=== PATIENT | female | born 1990 | race Native Hawaiian/Other Pacific Islander ===

== ENCOUNTER 2016-10-30 15:26 | Emergency (ER) | payer OTHER ==
[2016-10-30 15:27] VITALS: BMI 26.4
[2016-10-30] MEDS ORDERED: Sodium Chloride 0.9% 1,000 ML IV ONE (15:49)
--- NOTE | 2016-10-30 15:50 | C.PDOC ---
History Of Present Illness <Franca Alexander - Last Filed: 10/30/16 19:31> <Deniz Bhatt - Last Filed: 10/30/16 22:08> 26 year old patient presents to the emergency department complaining of dull epigastric abdominal pain that began this morning. She reports the pain now is sharp. She also complains of 2 episodes of vomiting of food substance, non- bloody, non-bilious. Patient denies fever, chills, diarrhea, or back pain. no urinary symptoms, no cp, no sob. no sick contacts. (Franca Alexander) History Per: Patient History/Exam Limitations: no limitations Onset/Duration Of Symptoms: Hrs (this morning) Current Symptoms Are (Timing): Still Present Context: Other Severity: Mild Pain Scale Rating Of: 3 Location Of Pain/Discomfort: Epigastric Radiation Of Pain To:: None Quality Of Discomfort: Sharp, "Pain" Associated Symptoms: Nausea, Vomiting Exacerbating Factors: None Alleviating Factors: None Last Bowel Movement: Today Recent travel outside of the [place]: No <Franca Alexander - Last Filed: 10/30/16 19:31> <Deniz Bhatt - Last Filed: 10/30/16 22:08> Time Seen by Provider: 10/30/16 15:42 Chief Complaint (Nursing): Abdominal Pain Past Medical History Reviewed: Historical Data, Nursing Documentation, Vital Signs - Medical History PMH: Asthma Surgical History: No Surg Hx Family History: States: Unknown Family Hx - Social History Hx Tobacco Use: No Hx Alcohol Use: No Hx Substance Use: No - Immunization History Hx Tetanus Toxoid Vaccination: No Hx Influenza Vaccination: Yes Hx Pneumococcal Vaccination: No <Franca Alexander - Last Filed: 10/30/16 19:31> Review Of Systems Except As Marked, All Systems Reviewed And Found Negative. Constitutional: Negative for: Fever, Chills Gastrointestinal: Positive for: Nausea, Vomiting, Abdominal Pain. Negative for : Diarrhea Genitourinary: Negative for: Dysuria, Vaginal Discharge, Vaginal Bleeding Musculoskeletal: Negative for: Back Pain <Franca Alexander - Last Filed: 10/30/16 19:31> Physical Exam - Physical Exam Appears: Non-toxic, No Acute Distress Skin: Warm, Dry Head: Atraumatic, Normacephalic Oral Mucosa: Moist Throat: Normal, No Erythema Neck: Normal ROM, Supple Chest: Symmetrical, No Tenderness Cardiovascular: Rhythm Regular, No Murmur Respiratory: Normal Breath Sounds, No Rales, No Rhonchi, No Wheezing Gastrointestinal/Abdominal: Bowel Sounds, Soft, No Tenderness, No Distention, No Guarding, No Rebound Back: Normal Inspection, No CVA Tenderness Extremity: Normal ROM, No Pedal Edema, No Swelling Neurological/Psych: Oriented x3, Normal Speech, Normal Cognition Gait: Steady <Franca Alexander - Last Filed: 10/30/16 19:31> ED Course And Treatment - Laboratory Results Result Diagrams: 10/30/16 16:16 10/30/16 16:16 O2 Sat by Pulse Oximetry: 99 (room air) Pulse Ox Interpretation: Normal Progress Note: Plan: Labs, IV fluids, Zofran <Franca Alexander - Last Filed: 10/30/16 19:31> - Laboratory Results Result Diagrams: 10/30/16 16:16 10/30/16 16:16 <Deniz Bhatt - Last Filed: 10/30/16 22:08> Medical Decision Making <Franca Alexander - Last Filed: 10/30/16 19:31> <Deniz Bhatt - Last Filed: 10/30/16 22:08> Medical Decision Making: pt still c/o abdominal pain that she can;'t describe after pepcid and zofran. no cholecystitis on abdominal us. abdomen re-examined; normoactive bs, soft, nd , minimal epigastric tenderness, no rebound or guarding. will give toradol. 715 pm pt still having significant pain after toradol will do ct scan abdomen to evalfor ab pathology (Franca Alexander) Disposition - Disposition Disposition Time: 19:35 <Franca Alexander - Last Filed: 10/30/16 19:31> Counseled Patient/Family Regarding: Diagnosis - POA Present On Arrival: None <Deniz Bhatt Last Filed: 10/30/16 22:08> - Disposition Referrals: [facility] [Outside] Robert Beasley MD [Staff Provider] - Disposition: HOME/ ROUTINE Condition: STABLE Prescriptions: Dicyclomine [Dicyclomine HCl] 10 mg PO QID #14 cap Instructions: Abdominal Pain (ED) - Clinical Impression Clinical Impression: Abdominal pain - 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 - Scribe Statement The provider has reviewed the documentation as recorded by the Scribe <Franca Alexander - Last Filed: 10/30/16 19:31> <Deniz Bhatt - Last Filed: 10/30/16 22:08> - Scribe Statement Padmini Montemayor All medical record entries made by the Scribe were at my direction and personally dictated by me. I have reviewed the chart and agree that the record accurately reflects my personal performance of the history, physical exam, medical decision making, and the department course for this patient. I have also personally directed, reviewed, and agree with the discharge instructions and disposition. (Franca Alexander) Physician Patient Turnover Patient Signed Over To: Deniz Bhatt Handoff Comments: f/u ct scan and re-eval for dispo <Franca Alexander - Last Filed: 10/30/16 19:31>
[2016-10-30] MEDS ORDERED: Sodium Chloride 0.9% 1,000 ML ONE (16:03)
[2016-10-30 16:22] LABS: BASO % 0.2 % (0.0-2.0); EOS # 0.1 K/uL (0.0-0.7); EOS % 0.5 % (0.0-4.0); HEMATOCRIT 38.3 % (34.0-47.0); LYMPH # 1.2 K/uL (1.0-4.3); LYMPH % 8.2 % (20.0-40.0); MEAN CELL VOLUME 86.9 fL (81.0-99.0); MEAN CORPUSCULAR HEMOGLOBIN 28.6 pg (27.0-31.0); MEAN CORPUSCULAR HGB CONC 32.9 g/dL (33.0-37.0); MEAN PLATELET VOLUME 7.9 fL (7.2-11.7); MONO # 0.5 K/uL (0.0-0.8); MONO % 3.4 % (0.0-10.0); PLATELET COUNT 352 K/uL (130-400); RED CELL DISTRIBUTION WIDTH 13.3 % (11.5-14.5); WHITE BLOOD COUNT 14.8 K/uL (4.8-10.8)
[2016-10-30 16:26] LABS: CHLORIDE 97 mmol/L (98-107)
[2016-10-30 16:27] LABS: POTASSIUM 4.2 mmol/L (3.6-5.2); SODIUM 138 mmol/L (132-148)
[2016-10-30 16:29] LABS: ALB/GLOB RATIO 1.4 (1.0-2.1); ALKALINE PHOSPHATASE 87 U/L (38-126); AST/SGOT 20 U/L (14-36); BILIRUBIN,TOTAL 0.7 mg/dL (0.2-1.3); BLOOD UREA NITROGEN 11 mg/dL (7-17); CARBON DIOXIDE 30 mmol/L (22-30); GFR AFRICAN-AMERICAN > 60; TOTAL PROTEIN 8.5 g/dL (6.3-8.3)
[2016-10-30 16:30] LABS: ALT/SGPT 21 U/L (9-52); CALCIUM 9.5 mg/dl (8.6-10.4); GLUCOSE,RANDOM 98 mg/dL (65-105)
[2016-10-30 16:48] LABS: NEUTROPHIL 91 % (50-75); TOTAL CELLS COUNTED 100
[2016-10-30 17:21] LABS: RBC URINE 3 /hpf (0-3); URINE BILIRUBIN NEGATIVE (NEGATIVE); URINE BLOOD NEGATIVE (NEGATIVE); URINE COLOR Yellow (YELLOW); URINE GLUCOSE (UA) NORMAL (Normal); URINE KETONE 1+ mg/dL (NEGATIVE); URINE LEUKOCYTE ESTERASE NEG Leu/uL (Negative); URINE PROTEIN NEGATIVE (NEGATIVE); URINE UROBILINOGEN NORMAL mg/dL (0.2-1.0)
--- NOTE | 2016-10-30 17:50 | US ---
HISTORY: vomiting, ruq pain COMPARISON: None available. TECHNIQUE: Sonographic evaluation of the right upper quadrant of the abdomen. FINDINGS: LIVER: Measures 13.9 cm in length and appears within normal limits of shape, size, and echotexture. No focal hepatic mass identified. The main portal vein appears patent with normal directional flow. No intrahepatic bile duct dilatation. GALLBLADDER: No gallstones. 6 mm echogenic focus suspected to reflect a polyp. No gallbladder wall thickening or pericholecystic edema. Negative sonographic Vizcaino's sign as assessed by the director industrial relations. COMMON BILE DUCT: Measures 3 mm. PANCREAS: Not well-visualized. RIGHT KIDNEY: Measures 11.1 x 4.1 x 4.6 cm. No obstructing calculus or hydronephrosis identified. AORTA: Limited visualization appears grossly unremarkable. IVC: Limited visualization appears grossly unremarkable. OTHER FINDINGS: None . IMPRESSION: 6 mm echogenic focus within the gallbladder suspected to reflect a polyp. No consensus exist regarding management of polyps in the size range. Current recommendations indicate continued surveillance with serial follow-up imaging at 3, 6, and 12 months.
[2016-10-30] MEDS ORDERED: Iohexol 240 (50 ml) PO STA (19:30)
[2016-10-30] MEDS ORDERED: Iohexol 240 (50 ml) ONE (19:32)
[2016-10-30] MEDS ORDERED: Iodixanol 320 MG/ML 100 ML BOTTLE IV ONE (20:33)
[2016-10-30 22:22] VITALS: BP 116/74; PULSE 71; RESP 16; TEMP 97.9; O2SAT 100
--- NOTE | 2016-10-31 11:58 | CT ---
PROCEDURE: CT Abdomen and Pelvis with contrast HISTORY: upper ab pain, vomitng. wbc 15k COMPARISON: None. TECHNIQUE: Contrast dose: Radiation dose: Total exam DLP = mGy-cm. This CT exam was performed using one or more of the following dose reduction techniques: Automated exposure control, adjustment of the mA and/or kV according to patient size, and/or use of iterative reconstruction technique. FINDINGS: LOWER THORAX: Unremarkable. 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 GALLBLADDER AND BILE DUCTS: Unremarkable. PANCREAS: Unremarkable. No gross lesion or ductal dilatation. SPLEEN: Unremarkable. ADRENALS: Unremarkable. No mass. KIDNEYS AND URETERS: Unremarkable. No hydronephrosis. No solid mass. VASCULATURE: Unremarkable. No aortic aneurysm. BOWEL: Unremarkable. No obstruction. No gross mural thickening. APPENDIX: Normal appendix. PERITONEUM: Unremarkable. No free fluid. No free air. LYMPH NODES: Unremarkable. No enlarged lymph nodes. BLADDER: Unremarkable. REPRODUCTIVE: Small left ovarian cyst.. BONES: No acute fracture. OTHER FINDINGS: None. IMPRESSION: No acute findings.
== END 2016-10-30 22:21 | disposition home or self-care (01) ==
LOC: C.ER 15:26
DX: R10.13 Epigastric pain (principal)
CPT/HCPCS: 74177; 76705; 80053; 81001; 83690; 85025; 96361; 96374; 96375; 99285; J1885; J2405; J7040; Q9966; Q9967